=== PATIENT | male | born 1965 | race Hispanic/Latino ===

== ENCOUNTER 2017-07-26 09:44 | Outpatient (CLI) | payer OTHER | END 2017-07-26 09:45 | disposition home or self-care (01) | LOC: BICULT 09:44 | PROVIDERS: ATTEND Specialist | DX: E04.1 Nontoxic single thyroid nodule (principal); E06.3 Autoimmune thyroiditis | CPT/HCPCS: 76536 ==

== ENCOUNTER 2019-12-03 14:51 | Outpatient (CLI) | payer OTHER ==
--- NOTE | 2019-12-03 16:01 | ULT ---
Thyroid sonogram HISTORY: Thyroid nodule. Follow-up. COMPARISON: 08/23/2015. FINDINGS: Right thyroid lobe is 5.5 cm length and left is 4.2 cm. Each has a homogeneous echotexture without mass. Centered at the inferior aspect of the isthmus is a well-circumscribed rounded heterogeneous slightly hypoechoic mass that is 1.7 cm x 1.6 cm x 1.5 cm greatest diameters. Unchanged in appearance from the previous study. Calcifications within the deep portion are also unchanged in appearance. No new n odules are evident. IMPRESSION : Solid nodule within the thyroid isthmus as detailed above is stable compared to the prior study from 08/18/2015. TI RADS 4. Moderately suspicious. Given the 4 year stability, benignity has been documented, so that biopsy is not needed.
== END 2019-12-03 14:52 | disposition home or self-care (01) ==
LOC: BICULT 14:51
PROVIDERS: ATTEND Specialist
DX: E04.1 Nontoxic single thyroid nodule (principal); E06.3 Autoimmune thyroiditis
CPT/HCPCS: 76536